=== PATIENT | female | born 1995 | race Caucasian/White ===

== ENCOUNTER 2017-11-17 00:04 | Outpatient (CLI) | payer SELFPAY ==
[~2017-11-17] VITALS: Ht 167.6 cm; Wt 74.0 kg
[2017-11-17 00:28] LABS: HCG UR SG <= 1.005 (1.003-1.030); MICROSCOPIC INDICATED
== END 2017-11-17 00:45 | disposition home or self-care (01) ==
LOC: LDOP 00:04
PROVIDERS: ATTEND Obstetrics & Gynecology
DX: O42.90 Premature rupture of membranes, unspecified as to length of time between rupture and onset of labor, unspecified weeks of gestation (principal); Z3A.00 Weeks of gestation of pregnancy not specified
CPT/HCPCS: 81001; 81025